=== PATIENT | male | born 1985 | race Caucasian/White ===

== ENCOUNTER 2023-03-28 07:42 | Emergency (ER) | payer OTHER, SELFPAY ==
[2023-03-28 07:47] VITALS: BP 148/98; PULSE 87; RESP 18; TEMP 36.7; O2SAT 99; BMI 23.5
--- NOTE | 2023-03-28 07:53 | XR_ITS ---
The [address] [address] Patient Name: JONATHAN PURVIS MRN: [id number] date: 1985 Sex: M Assigned Patient Location: ER Current Patient Location: ER Accession/Order Number: [id number] Exam Date: 03/28/2023 08:00 Report Date: 03/28/2023 08:19 At the request of: GIORGIO MORRISON Procedure: XR cervical spine 2-3V EXAM: XR cervical spine 2-3V HISTORY: left sided pain, no trauma COMPARISON: None TECHNIQUE: 3 views of the cervical spine were obtained to include AP, lateral and odontoid views. FINDINGS: Vertebral body heights are grossly well-maintained. No significant disc space narrowing. Minimal anterior spurring at C4-5. Spinolaminar line appears grossly intact. Facet joints appear grossly unremarkable. Atlantoaxial interval appears grossly unremarkable. No definite acute fracture or dislocation. Mild convexity of the cervical spine to the right. Reversal of normally seen lordosis, correlate for muscle spasm. XR/XR cervical spine 2-3V IMPRESSION: Correlate for muscle spasm. Follow-up as needed. Electronically authenticated by: EVETTE ENRIQUEZ Date: 03/28/2023 08:19
--- NOTE | 2023-03-28 07:54 | ED.NECK1 ---
HPI - Neck Pain/Injury General Chief Complaint: Neck Pain/Injury Stated Complaint: extremity weakness Time Seen by Provider: 03/28/23 07:51 Source: patient Mode of arrival: walk-in Limitations: no limitations History of Present Illness HPI Narrative: 37-year-old male presents for pain on the left side of his neck which goes down his left arm. He's had it for a week. There was no trauma. He thinks it might be a pinched nerve. There is no pain on the right side and the pain is moderate. Related Data Previous Rx's Medication Instructions Recorded acetaminophen 300 mg-codeine 30 mg 1 tab PO Q6H PRN pain #20 tabs 03/28/23 tablet prednisone 10 mg tablet See Rx Instructions .Route 03/28/23 .COMPLEX #30 tabs Allergies Allergy/AdvReac Type Severity Reaction Status Date / Time No Known Drug Allergies Allergy Verified 03/28/23 07:47 Review of Systems ROS Narrative A ten point review of systems is negative except as noted above. PFSH PFSH Social History Smoking status: Never smoker Exam Narrative Exam Narrative: Nurses note and vital signs reviewed and patient is not hypoxic. General: The patient appears well and in no apparent distress. Patient is resting comfortably on cart. Skin: Warm, dry, no pallor noted. There is no rash noted. Head: Normocephalic, atraumatic; neck is no mass bruise or swelling. Eye: Normal conjunctiva, no drainage Ears, Nose, Mouth, and Throat: oral mucosa is moist. Nares patent. Cardiovascular: Regular Rate and Rhythm Respiratory: Patient is in no distress, no accessory muscle use, lungs are clear to auscultation, no wheezing, rales or rhonchi Back: non-tender GI: nontender Musculoskeletal: left arm is not swollen. Radial pulse 2+. No bruise or rash on the arm and the shoulder elbow and wrist have full range of motion. Neurological: A&O, normal speech Psychiatric: Cooperative Constitutional Vital Signs, click to edit/add: Last Vital Signs Temp 98.0 F 03/28/23 07:47 Pulse 87 03/28/23 07:47 Resp 18 03/28/23 07:47 BP 148/98 H 03/28/23 07:47 Pulse Ox 99 03/28/23 07:47 Course Vital Signs Vital signs: Vital Signs Temperature 98.0 F 03/28/23 07:47 Pulse Rate 87 03/28/23 07:47 Respiratory Rate 18 03/28/23 07:47 Blood Pressure 148/98 H 03/28/23 07:47 Pulse Oximetry 99 03/28/23 07:47 Temperature 98.0 F 03/28/23 07:47 Pulse Rate 87 03/28/23 07:47 Respiratory Rate 18 03/28/23 07:47 Blood Pressure 148/98 H 03/28/23 07:47 Pulse Oximetry 99 03/28/23 07:47 MDM - Neck Pain/Injury MDM Narrative Medical decision making narrative: x-ray findings are discussed with the patient and he is placed on prednisone and Tylenol 3. Primary care referral made. Treatment diagnosis and follow-up were discussed with the patient. Differential Diagnosis Differential diagnosis: Likely disc disorder of cervical region, fracture of cervical spine without lesion of spinal cord, cervical radiculopathy, cervical spondylosis and strain of neck muscle Imaging Data C-spine x-rays: Radiologist's impression: Procedure: XR cervical spine 2-3V EXAM: XR cervical spine 2-3V HISTORY: left sided pain, no trauma COMPARISON: None TECHNIQUE: 3 views of the cervical spine were obtained to include AP, lateral and odontoid views. FINDINGS: Vertebral body heights are grossly well-maintained. No significant disc space narrowing. Minimal anterior spurring at C4-5. Spinolaminar line appears grossly intact. Facet joints appear grossly unremarkable. Atlantoaxial interval appears grossly unremarkable. No definite acute fracture or dislocation. Mild convexity of the cervical spine to the right. Reversal of normally seen lordosis, correlate for muscle spasm. IMPRESSION: Correlate for muscle spasm. Follow-up as needed. Electronically authenticated by: EVETTE ENRIQUEZ Date: 03/28/2023 08:19 Discharge Plan Discharge Chief Complaint: Neck Pain/Injury Clinical Impression: Cervical radiculopathy Patient Disposition: Home, Self-Care Time of Disposition Decision: 08:34 Condition: Good Mode of Transportation: Private Vehicle Prescriptions / Home Meds: New prednisone 10 mg tablet See Rx Instructions .ROUTE .COMPLEX Qty: 30 0RF Rx Instructions: 4 by mouth daily for three days then 3 by mouth daily for three days then 2 by mouth daily for three days then 1 by mouth daily for three days acetaminophen-codeine 300-30 mg tablet 1 tab PO Q6H PRN (Reason: pain) Qty: 20 0RF Instructions: Cervical Radiculopathy (ED) Stand Alone Forms: Portal Instructions Referrals: Physician,Non-Staff, MD [Primary Care Provider] - 1 week
== END 2023-03-28 08:52 | disposition home or self-care (01) ==
PROVIDERS: Emergency Provider Emergency Medicine
DX: M54.12 Radiculopathy, cervical region (principal)
CPT/HCPCS: 72040; 99283